=== PATIENT | male | born 1965 | race Asian ===

== ENCOUNTER 2021-10-30 10:45 | Inpatient (IN) | payer MEDICAID, OTHER ==
[~2021-10-30] VITALS: Ht 162.6 cm; Wt 98.2 kg
[2021-10-30 11:54] LABS: Basophils # (auto) 0.1 10 ^3/uL (0-0.2); Basophils % (auto) 0.7 % (0.0-2.0); Eosinophils # (auto) 0.2 10 ^3/uL (0-0.8); Eosinophils % (auto) 2.8 % (0.0-7.0); Hematocrit 43.9 % (41.0-53.0); Hemoglobin 14.7 g/dL (13.5-17.5); Lymphocytes % (auto) 34.4 % (10.0-50.0); Mean Corpuscular Hemoglobin 31.6 pg (28.0-32.0); Mean Corpuscular Hgb Conc. 33.5 g/dL (32.0-36.0); Mean Corpuscular Volume 94.3 fL (80.0-100.0); Monocytes # (auto) 0.6 10 ^3/uL (0-1.3); Monocytes % (auto) 6.9 % (0.0-12.0); Neutrophils # (auto) 4.8 10 ^3/uL (1.6-8.6); Neutrophils % (auto) 55.2 % (37.0-80.0); Nucleated Red Blood Cells % 0.2 %; Red Blood Cells 4.65 10^6/uL (4.5-5.90); Red Cell Distribution Width 14.2 % (11.8-14.3); White Blood Cell 8.7 10^3/uL (4.4-10.8)
[2021-10-30 12:04] LABS: BUN/Creatinine Ratio 23.5; Calcium 9.6 mg/dL (8.5-10.1); Potassium 3.8 mmol/L (3.5-5.1)
[2021-10-30 12:07] LABS: Bilirubin, Total 0.3 mg/dL (0.2-1.0)
[2021-10-30 12:41] LABS: INR > 8.0 (0.9-1.15); Partial Thromboplastin Time 91.4 sec (23.6-33.0)
[2021-10-30] MEDS ORDERED: cloNIDine HCL 0.1 MG TAB PO ONE (13:00)
[2021-10-30] MEDS ORDERED: MORPHINE SULFATE INJECTION 2 MG/ML SYRG IV PRN (14:30)
[2021-10-30] MEDS ORDERED: NITROGLYCERIN 0.4 MG SL TAB SL PRN (14:30)
[2021-10-30] MEDS ORDERED: PHYTONADIONE(VitK) ORAL Susp 5mg/5ml(1mg/ml) PO ONE (14:30)
[2021-10-30] MEDS ORDERED: ONDANSETRON HCL 4 MG/2 ML VIAL IV PRN (14:30)
[2021-10-30] MEDS ORDERED: phytonadione 0 ML ONE (14:35)
[2021-10-30] MEDS ORDERED: amLODIPine BESYLATE 5 MG TAB PO SCH (18:00)
[2021-10-30 18:34] VITALS: BP 130/88
[2021-10-30 22:00] VITALS: BP 108/74
[2021-10-30] MEDS: LISINOPRIL 5 MG TAB PO SCH (22:00)
[2021-10-30] MEDS: CARVEDILOL 3.125 MG TAB PO SCH (22:44)
[2021-10-30] MEDS: PANTOPRAZOLE 40 MG/10 ML VIAL INJ IV SCH (22:47)
[2021-10-31] VITALS (19 sets, daily range): BP systolic 75–141; BP diastolic 44–84
[2021-10-31 05:39] LABS: Hematocrit 38.2 % (41.0-53.0); Hemoglobin 13.1 g/dL (13.5-17.5)
[2021-10-31 06:47] LABS: INR > 8.0 (0.9-1.15)
[2021-10-31 06:48] LABS: Partial Thromboplastin Time 98.2 sec (23.6-33.0)
[2021-10-31] MEDS ORDERED: PHYTONADIONE (VIT K)10 MG/ML 1ML VIAL SUBCUT ONE (07:00)
[2021-10-31] MEDS: LISINOPRIL 5 MG TAB PO SCH (09:33)
[2021-10-31] MEDS: PANTOPRAZOLE 40 MG/10 ML VIAL INJ IV SCH ×2 (09:34→21:07)
[2021-10-31] MEDS: CARVEDILOL 3.125 MG TAB PO SCH (09:34)
[2021-10-31] MEDS ORDERED: PHYTONADIONE(VitK) ORAL Susp 5mg/5ml(1mg/ml) PO ONE (10:00)
[2021-10-31] MEDS: NICOTINE 21MG/24 HR TOPICAL PATCH TD SCH (13:10)
[2021-10-31] MEDS ORDERED: SODIUM CHLORIDE 0.9% 500 ML IV ONE ×2 (13:45→14:45)
[2021-10-31] MEDS: amLODIPine BESYLATE 5 MG TAB PO SCH ×2 (13:45→17:28)
[2021-10-31] MEDS ORDERED: CARVEDILOL 3.125 MG TAB PO SCH (13:45)
[2021-10-31 15:20] LABS: Hematocrit 32.2 % (41.0-53.0); Hemoglobin 10.8 g/dL (13.5-17.5)
[2021-10-31] MEDS ORDERED: phytonadione 10 MG in SODIUM CHL 0.9% 50 ML IV ONE (15:45)
[2021-10-31] MEDS ORDERED: ACETAMINOPHEN 500 MG TAB PO ONE (15:45)
[2021-10-31] MEDS ORDERED: ALBUMIN 25% 100 ML IV ONE ×2 (15:45)
[2021-10-31] MEDS ORDERED: diphenhdrAMINE HCL 25 MG CAP PO PRN (15:45)
[2021-10-31] MEDS ORDERED: diphenhdrAMINE HCL 25 MG CAP PO ONE (15:45)
[2021-10-31 16:46] LABS: Basophils # (auto) 0.1 10 ^3/uL (0-0.2); Basophils % (auto) 0.7 % (0.0-2.0); Eosinophils # (auto) 0.3 10 ^3/uL (0-0.8); Eosinophils % (auto) 3.5 % (0.0-7.0); Hematocrit 29.9 % (41.0-53.0); Hemoglobin 10.1 g/dL (13.5-17.5); Lymphocytes % (auto) 39.5 % (10.0-50.0); Mean Corpuscular Hemoglobin 31.6 pg (28.0-32.0); Mean Corpuscular Hgb Conc. 33.7 g/dL (32.0-36.0); Mean Corpuscular Volume 93.8 fL (80.0-100.0); Monocytes # (auto) 0.5 10 ^3/uL (0-1.3); Monocytes % (auto) 6.3 % (0.0-12.0); Neutrophils # (auto) 3.8 10 ^3/uL (1.6-8.6); Nucleated Red Blood Cells % 0.1 %; Red Blood Cells 3.18 10^6/uL (4.5-5.90); Red Cell Distribution Width 14.2 % (11.8-14.3); White Blood Cell 7.7 10^3/uL (4.4-10.8)
[2021-10-31 17:09] LABS: INR 7.96 (0.9-1.15)
[2021-10-31 17:12] LABS: % Iron Saturation 56.8 % (20-55)
[2021-10-31 18:57] LABS: Ferritin 54.6 ng/mL (10-322)
[2021-10-31 19:34] LABS: Partial Thromboplastin Time 72.4 sec (23.6-33.0)
[2021-10-31] MEDS ORDERED: ATORVASTATIN 20 MG TAB PO SCH (22:00)
[2021-11-01] VITALS (9 sets, daily range): BP systolic 110–160; BP diastolic 65–84
[2021-11-01 01:52] LABS: Hematocrit 36.6 % (41.0-53.0); Hemoglobin 12.6 g/dL (13.5-17.5)
[2021-11-01 06:13] LABS: Basophils # (auto) 0 10 ^3/uL (0-0.2); Basophils % (auto) 0.7 % (0.0-2.0); Eosinophils # (auto) 0.2 10 ^3/uL (0-0.8); Eosinophils % (auto) 3.5 % (0.0-7.0); Hemoglobin 12.6 g/dL (13.5-17.5); Lymphocytes # (auto) 2.3 10 ^3/uL (0.4-5.4); Lymphocytes % (auto) 34.8 % (10.0-50.0); Mean Corpuscular Hemoglobin 31.5 pg (28.0-32.0); Mean Corpuscular Hgb Conc. 34.8 g/dL (32.0-36.0); Mean Corpuscular Volume 90.4 fL (80.0-100.0); Monocytes # (auto) 0.5 10 ^3/uL (0-1.3); Monocytes % (auto) 7.4 % (0.0-12.0); Neutrophils # (auto) 3.6 10 ^3/uL (1.6-8.6); Neutrophils % (auto) 53.6 % (37.0-80.0); Red Blood Cells 3.99 10^6/uL (4.5-5.90); Red Cell Distribution Width 14.6 % (11.8-14.3); White Blood Cell 6.7 10^3/uL (4.4-10.8)
[2021-11-01 06:20] LABS: INR 1.16 (0.9-1.15); Partial Thromboplastin Time 29.2 sec (23.6-33.0); Potassium 3.8 mmol/L (3.5-5.1)
[2021-11-01 06:25] LABS: BUN/Creatinine Ratio 26.4; Calcium 8.4 mg/dL (8.5-10.1)
[2021-11-01] MEDS ORDERED: OMNIPAQUE ORAL SOLN 500ml 12mg/ml PO ONE (07:31)
[2021-11-01] MEDS: NICOTINE 21MG/24 HR TOPICAL PATCH TD SCH (10:20)
[2021-11-01] MEDS: PANTOPRAZOLE 40 MG/10 ML VIAL INJ IV SCH (10:20)
[2021-11-01] MEDS ORDERED: WARF3TAB22 PO ×2 (12:52→13:05)
[2021-11-01] MEDS ORDERED: AMLO-489 PO ×2 (12:52→13:05)
[2021-11-01] MEDS ORDERED: LISI20TA28 PO (12:56)
[2021-11-01] MEDS ORDERED: LISI-716 PO ×2 (12:56→13:05)
[2021-11-01] MEDS ORDERED: ATOR-47 PO ×2 (12:56→13:05)
[2021-11-01] MEDS ORDERED: PANT40T PO (13:05)
[2021-11-01] MEDS ORDERED: amLODIPine BESYLATE 5 MG TAB PO ONE (13:15)
[2021-11-01] MEDS ORDERED: ENOXAPARIN SOD 40 MG/0.4 ML SYRINGE SC SCH (22:00)
[2021-11-02 15:17] LABS: Folate (Folic Acid) 12.29 ng/mL (5.38-24)
== END 2021-11-01 16:15 | disposition home or self-care (01) | DRG 254 ==
LOC: ER 10:45 → TELE 14:16 → TELE-EAST 17:52
PROVIDERS: ADMIT Hospitalist; ATTEND Hospitalist
PROC: 30233K1 Transfusion of Nonautologous Frozen Plasma into Peripheral Vein, Percutaneous Approach (ICD-10-PCS; principal; 2021-10-31)
PROC: 30233N1 Transfusion of Nonautologous Red Blood Cells into Peripheral Vein, Percutaneous Approach (ICD-10-PCS; 2021-10-31)
DX: K92.1 Melena (principal); I63.449 Cerebral infarction due to embolism of unspecified cerebellar artery; D62 Acute posthemorrhagic anemia; E78.5 Hyperlipidemia, unspecified; T45.515A Adverse effect of anticoagulants, initial encounter; Z20.822 Contact with and (suspected) exposure to COVID-19; I11.9 Hypertensive heart disease without heart failure; Z82.49 Family history of ischemic heart disease and other diseases of the circulatory system; Z86.73 Personal history of transient ischemic attack (TIA), and cerebral infarction without residual deficits; Y92.89 Other specified places as the place of occurrence of the external cause; Z87.891 Personal history of nicotine dependence
CPT/HCPCS: 36415; 70450; 74176; 80048; 80053; 82607; 82728; 82746; 83540; 83550; 83615; 85014; 85018; 85025; 85045; 85384; 85610; 85730; 86850; 86900; 86901; 86920; 87426; 93005; 97163; C9113; G0378; J3430; P9047

== ENCOUNTER 2023-08-09 10:35 | Inpatient (IN) | payer MEDICAID ==
[~2023-08-09] VITALS: Ht 193 cm; Wt 61.1 kg
[~2023-08-09 10:35] MED LIST: AMLO1TAB22 PO; ATOR-47 PO; LISI10TA34 PO; PANT40T PO; WARF-111 PO
[2023-08-09 12:02] LABS: Basophils # (auto) 0.1 10 ^3/uL (0-0.2); Eosinophils # (auto) 0.3 10 ^3/uL (0-0.8); Hematocrit 24.4 % (41.0-53.0); Hemoglobin 7.2 g/dL (13.5-17.5); Mean Corpuscular Hemoglobin 19.5 pg (28.0-32.0); Monocytes # (auto) 0.6 10 ^3/uL (0-1.3); White Blood Cell 8.5 10^3/uL (4.4-10.8)
[2023-08-09 12:05] LABS: Basophils % (auto) 1.3 % (0.0-2.0); Lymphocytes % (auto) 23.1 % (10.0-50.0); Mean Corpuscular Hgb Conc. 29.4 g/dL (32.0-36.0); Mean Corpuscular Volume 66.3 fL (80.0-100.0); Monocytes % (auto) 7.2 % (0.0-12.0); Neutrophils # (auto) 5.6 10 ^3/uL (1.6-8.6); Neutrophils % (auto) 65.4 % (37.0-80.0); Red Blood Cells 3.68 10^6/uL (4.5-5.90)
[2023-08-09 12:09] LABS: Red Cell Distribution Width 20.5 % (11.8-14.3)
[2023-08-09 12:20] LABS: Alanine Aminotransferase 22 U/L (7-40); Albumin 4.8 g/dL (3.2-4.8); Alkaline Phosphatase 57 U/L (46-116); Anion Gap 9 (5-15); Aspartate Aminotransferase 27 U/L (13-40); BUN/Creatinine Ratio 13.2 (10.0-20.0); Bilirubin, Total 0.5 mg/dL (0.2-1.0); Blood Urea Nitrogen 12 mg/dL (9-23); Calcium 9.6 mg/dL (8.5-10.1); Carbon Dioxide 22 mmol/L (20-30); Chloride 105 mmol/L (98-107); Glucose 79 mg/dL (74-106); Potassium 4.4 mmol/L (3.5-5.1); Sodium 136 mmol/L (136-145)
[2023-08-09 12:21] LABS: Total Protein 7.6 g/dL (5.7-8.2)
[2023-08-09 12:24] LABS: INR 2.2 (0.9-1.15); Partial Thromboplastin Time 32.1 SEC (24.5-34.5); Prothrombin Time 21.9 sec (9.3-11.8)
[2023-08-09 12:25] LABS: Anisocytosis Slight; Hypochromia Marked; Platelet Estimate Adequate
[2023-08-09 12:26] LABS: Ovalocytes FEW; Stomatocytes Few
[2023-08-09 15:00] VITALS: BP 128/66; PULSE 102; RESP 20; TEMP 97; O2SAT 98
[2023-08-09] MEDS ORDERED: SODIUM CHLORIDE 0.9% 1,000 ML IV SCH (15:45)
[2023-08-09] MEDS ORDERED: MORPHINE SULFATE INJ 2 MG/ml SYRG IV PRN (15:45)
[2023-08-09] MEDS ORDERED: ONDANSETRON HCL 4 MG/2 ML VIAL IV PRN (15:45)
[2023-08-09] MEDS ORDERED: DOCUSATE SOD 100 MG CAP PO PRN (15:45)
[2023-08-09 16:07] LABS: Urine Bacteria NONE SEEN /hpf (None Seen); Urine Blood Negative /uL (Negative); Urine Clarity Clear (Clear); Urine Color Yellow (Yellow); Urine Hyaline Cast FEW /lpf (0 - 2); Urine Mucus FEW (None Seen); Urine Protein, UAD TRACE (Negative); Urine Specific Gravity 1.021 (1.001-1.035); Urine Urobilinogen Normal (Negative); Urine WBC 1 /hpf (0 - 3); Urine pH 5.5 (5.0-8.0)
[2023-08-09 16:32] LABS: Hematocrit 26.2 % (41.0-53.0); Hemoglobin 7.8 g/dL (13.5-17.5)
[2023-08-09 16:57] LABS: INR 2.12 (0.9-1.15); Prothrombin Time 21.2 sec (9.3-11.8)
[2023-08-09] MEDS ORDERED: LISINOPRIL 10 MG TAB PO SCH (18:00)
[2023-08-09] MEDS ORDERED: ATORVASTATIN 20 MG TAB PO SCH (22:00)
[2023-08-09] MEDS ORDERED: PANTOPRAZOLE 40 MG/10 ML VIAL INJ IV SCH (22:00)
[2023-08-10] MEDS ORDERED: amLODIPine BESYLATE 5 MG TAB PO SCH (10:00)
== END 2023-08-09 21:46 | disposition left against medical advice (07) | DRG 253 ==
LOC: ER 10:35 → OVERFLOW 15:42
PROVIDERS: ADMIT Nurse Practitioner Family; ATTEND Nurse Practitioner Family
DX: K92.2 Gastrointestinal hemorrhage, unspecified (principal); I11.9 Hypertensive heart disease without heart failure; E78.5 Hyperlipidemia, unspecified; D62 Acute posthemorrhagic anemia; Z53.21 Procedure and treatment not carried out due to patient leaving prior to being seen by health care provider; Z86.73 Personal history of transient ischemic attack (TIA), and cerebral infarction without residual deficits; Z87.891 Personal history of nicotine dependence
CPT/HCPCS: 36415; 80053; 81001; 85014; 85018; 85025; 85610; 85730; 86850; 86900; 86901; 86920; G0378

== ENCOUNTER 2023-09-14 10:20 | Inpatient (IN) | payer MEDICAID ==
[~2023-09-14] VITALS: Ht 162.6 cm; Wt 52.9 kg
[2023-09-14 11:03] LABS: Basophils # (auto) 0.1 10 ^3/uL (0-0.2); Eosinophils # (auto) 0.3 10 ^3/uL (0-0.8)
[2023-09-14 11:06] LABS: Basophils % (auto) 0.7 % (0.0-2.0); Eosinophils % (auto) 2.8 % (0.0-7.0); Hematocrit 23.6 % (41.0-53.0); Lymphocytes # (auto) 2.5 10 ^3/uL (0.4-5.4); Lymphocytes % (auto) 27.8 % (10.0-50.0); Mean Corpuscular Hemoglobin 17.9 pg (28.0-32.0); Mean Corpuscular Hgb Conc. 29.1 g/dL (32.0-36.0); Mean Corpuscular Volume 61.7 fL (80.0-100.0); Monocytes # (auto) 0.7 10 ^3/uL (0-1.3); Monocytes % (auto) 7.3 % (0.0-12.0); Neutrophils # (auto) 5.6 10 ^3/uL (1.6-8.6); Neutrophils % (auto) 61.4 % (37.0-80.0); Red Blood Cells 3.83 10^6/uL (4.5-5.90); White Blood Cell 9.1 10^3/uL (4.4-10.8)
[2023-09-14 11:17] LABS: Red Cell Distribution Width 20.1 % (11.8-14.3)
[2023-09-14 11:19] LABS: Hemoglobin 6.9 g/dL (13.5-17.5)
[2023-09-14 11:22] LABS: Chloride 106 mmol/L (98-107); Potassium 4.5 mmol/L (3.5-5.1); Sodium 138 mmol/L (136-145)
[2023-09-14 11:23] LABS: Anion Gap 7 (5-15); Carbon Dioxide 25 mmol/L (20-30)
[2023-09-14 11:24] LABS: Calcium 9.9 mg/dL (8.5-10.1)
[2023-09-14 11:28] LABS: Glucose 98 mg/dL (74-106)
[2023-09-14 11:29] LABS: BUN/Creatinine Ratio 15.5 (10.0-20.0); Blood Urea Nitrogen 16 mg/dL (9-23)
[2023-09-14] MEDS ORDERED: MORPHINE SULFATE INJ 2 MG/ml SYRG IV PRN (12:45)
[2023-09-14] MEDS ORDERED: DOCUSATE SOD 100 MG CAP PO PRN (12:45)
[2023-09-14] MEDS ORDERED: ONDANSETRON HCL 4 MG/2 ML VIAL IV PRN (12:45)
[2023-09-14 13:38] LABS: INR 2.37 (0.9-1.15); Prothrombin Time 23.5 sec (9.3-11.8)
[2023-09-14 14:00] LABS: Hematocrit 23.8 % (41.0-53.0)
[2023-09-14 14:25] LABS: Hemoglobin 6.9 g/dL (13.5-17.5)
[2023-09-14 14:32] LABS: Anisocytosis Slight; Hypochromia Marked; Platelet Estimate Increased
[2023-09-14 20:23] VITALS: PULSE 87; RESP 18; O2SAT 99
[2023-09-14] MEDS: SODIUM CHLORIDE 0.9% 1,000 ML IV SCH ×2 (20:35→21:37)
[2023-09-14] MEDS: LISINOPRIL 10 MG TAB PO SCH (20:36)
[2023-09-15] VITALS (11 sets, daily range): BP systolic 117–154; BP diastolic 62–76; PULSE 75–101; RESP 16–18; TEMP 97.2–98.2; O2SAT 94–99
[2023-09-15] MEDS: PANTOPRAZOLE 40 MG/10 ML VIAL INJ IV SCH ×3 (00:15→21:48)
[2023-09-15] MEDS: ATORVASTATIN 20 MG TAB PO SCH ×2 (00:15→21:48)
[2023-09-15] MEDS ORDERED: METF-372 PO (03:20)
[2023-09-15] MEDS ORDERED: ASPI81CH59 PO (03:20)
[2023-09-15] MEDS ORDERED: BUPR-346 PO (03:20)
[2023-09-15] MEDS: SODIUM CHLORIDE 0.9% 1,000 ML IV SCH ×2 (06:44→12:38)
[2023-09-15] MEDS ORDERED: GOLYTELY 4L KIT PO ONE (09:45)
[2023-09-15] MEDS ORDERED: amLODIPine BESYLATE 5 MG TAB PO SCH (10:00)
[2023-09-15 11:12] LABS: Basophils # (auto) 0.1 10 ^3/uL (0-0.2); Hemoglobin 7.9 g/dL (13.5-17.5); Lymphocytes # (auto) 1.5 10 ^3/uL (0.4-5.4); Monocytes # (auto) 0.5 10 ^3/uL (0-1.3); Neutrophils # (auto) 3.9 10 ^3/uL (1.6-8.6); Nucleated Red Blood Cells % 0.1 %; White Blood Cell 6.2 10^3/uL (4.4-10.8)
[2023-09-15 11:14] LABS: Basophils % (auto) 1.1 % (0.0-2.0); Eosinophils # (auto) 0.3 10 ^3/uL (0-0.8); Eosinophils % (auto) 4.7 % (0.0-7.0); Hematocrit 26.6 % (41.0-53.0); Lymphocytes % (auto) 24.6 % (10.0-50.0); Mean Corpuscular Hemoglobin 19.3 pg (28.0-32.0); Mean Corpuscular Hgb Conc. 29.8 g/dL (32.0-36.0); Mean Corpuscular Volume 64.9 fL (80.0-100.0); Monocytes % (auto) 7.4 % (0.0-12.0); Neutrophils % (auto) 62.2 % (37.0-80.0)
[2023-09-15 11:20] LABS: Alanine Aminotransferase 18 U/L (7-40); Albumin 4.4 g/dL (3.2-4.8); Alkaline Phosphatase 52 U/L (46-116); Anion Gap 8 (5-15); Aspartate Aminotransferase 27 U/L (13-40); BUN/Creatinine Ratio 10.4 (10.0-20.0); Bilirubin, Total 0.5 mg/dL (0.2-1.0); Blood Urea Nitrogen 11 mg/dL (9-23); Calcium 9.2 mg/dL (8.5-10.1); Carbon Dioxide 23 mmol/L (20-30); Chloride 107 mmol/L (98-107); Potassium 4.7 mmol/L (3.5-5.1); Sodium 138 mmol/L (136-145)
[2023-09-15 11:24] LABS: Glucose 241 mg/dL (74-106)
[2023-09-15 12:00] LABS: Red Cell Distribution Width 24.3 % (11.8-14.3)
[2023-09-15 15:32] LABS: Urine Bacteria NONE SEEN /hpf (None Seen); Urine Blood Negative /uL (Negative); Urine Clarity Clear (Clear); Urine Color Colorless (Yellow); Urine Protein, UAD Negative (Negative); Urine Specific Gravity 1.005 (1.001-1.035); Urine Urobilinogen Normal (Negative); Urine WBC <1 /hpf (0 - 3); Urine pH 7.5 (5.0-8.0)
[2023-09-15 16:42] LABS: INR 2.15 (0.9-1.15); Prothrombin Time 21.5 sec (9.3-11.8)
[2023-09-15] MEDS: LISINOPRIL 10 MG TAB PO SCH (17:42)
[2023-09-16] VITALS (7 sets, daily range): BP systolic 140–147; BP diastolic 53–88; PULSE 80–95; RESP 16–19; TEMP 97.6–98.4; O2SAT 92–97
[2023-09-16] MEDS: SODIUM CHLORIDE 0.9% 1,000 ML IV SCH ×2 (05:55→15:31)
[2023-09-16] MEDS ORDERED: GOLYTELY 4L KIT PO ONE (06:00)
[2023-09-16] MEDS ORDERED: MAGNESIUM CITRATE SOLUTION 300 ML BTL PO ONE (06:00)
[2023-09-16 07:23] LABS: Eosinophils # (auto) 0.3 10 ^3/uL (0-0.8); Mean Corpuscular Hemoglobin 19.3 pg (28.0-32.0); Monocytes # (auto) 0.6 10 ^3/uL (0-1.3); Nucleated Red Blood Cells % 0.2 %
[2023-09-16 07:25] LABS: Basophils # (auto) 0.1 10 ^3/uL (0-0.2); Hematocrit 29.8 % (41.0-53.0); Lymphocytes # (auto) 2.8 10 ^3/uL (0.4-5.4); Mean Corpuscular Hgb Conc. 30.1 g/dL (32.0-36.0); Mean Corpuscular Volume 64.1 fL (80.0-100.0); Monocytes % (auto) 8.2 % (0.0-12.0); Neutrophils # (auto) 3.6 10 ^3/uL (1.6-8.6); Neutrophils % (auto) 48.8 % (37.0-80.0); Red Blood Cells 4.65 10^6/uL (4.5-5.90); White Blood Cell 7.4 10^3/uL (4.4-10.8)
[2023-09-16 07:36] LABS: Red Cell Distribution Width 24.2 % (11.8-14.3)
[2023-09-16 07:40] LABS: Alanine Aminotransferase 23 U/L (7-40); Alkaline Phosphatase 60 U/L (46-116); Anion Gap 11 (5-15); Aspartate Aminotransferase 36 U/L (13-40); BUN/Creatinine Ratio 7.4 (10.0-20.0); Bilirubin, Total 0.7 mg/dL (0.2-1.0); Blood Urea Nitrogen 7 mg/dL (9-23); Calcium 9.7 mg/dL (8.5-10.1); Carbon Dioxide 22 mmol/L (20-30); Chloride 109 mmol/L (98-107); Glucose 97 mg/dL (74-106); Potassium 3.8 mmol/L (3.5-5.1); Sodium 142 mmol/L (136-145); Total Protein 7.9 g/dL (5.7-8.2)
[2023-09-16 07:41] LABS: % Iron Saturation 6.2 % (20-55)
[2023-09-16 07:52] LABS: INR 1.45 (0.9-1.15); Partial Thromboplastin Time 28.2 SEC (24.5-34.5); Prothrombin Time 14.9 sec (9.3-11.8)
[2023-09-16] MEDS ORDERED: LIDOCAINE 2%HCL (LOCAL ANESTH.) INJ 10ml MDV ONE (08:50)
[2023-09-16 09:14] LABS: Hypochromia Marked; Platelet Estimate Increased
[2023-09-16 09:15] LABS: Anisocytosis Slight
[2023-09-16] MEDS: PANTOPRAZOLE 40 MG/10 ML VIAL INJ IV SCH (09:51)
[2023-09-16] MEDS ORDERED: LIDOCAINE 1% INJ PF 5ML AMP ONE (10:06)
[2023-09-16] MEDS ORDERED: PROPOFOL 10 MG/ML 20 ML IV ONE ×2 (10:06→10:46)
[2023-09-16] MEDS: LISINOPRIL 10 MG TAB PO SCH (19:30)
[2023-09-16] MEDS: ATORVASTATIN 20 MG TAB PO SCH (21:42)
[2023-09-17] MEDS: SODIUM CHLORIDE 0.9% 1,000 ML IV SCH (02:29)
[2023-09-17 05:18] VITALS: BP 133/68; PULSE 72; RESP 19; TEMP 98.9; O2SAT 95
[2023-09-17 06:48] LABS: Basophils # (auto) 0.1 10 ^3/uL (0-0.2); Eosinophils # (auto) 0.3 10 ^3/uL (0-0.8); Hemoglobin 7.9 g/dL (13.5-17.5); Monocytes # (auto) 0.7 10 ^3/uL (0-1.3); Neutrophils # (auto) 5.4 10 ^3/uL (1.6-8.6)
[2023-09-17 06:50] LABS: Basophils % (auto) 1.1 % (0.0-2.0); Eosinophils % (auto) 3.7 % (0.0-7.0); Hematocrit 26.2 % (41.0-53.0); Lymphocytes % (auto) 23.3 % (10.0-50.0); Mean Corpuscular Hemoglobin 19.6 pg (28.0-32.0); Mean Corpuscular Hgb Conc. 30.1 g/dL (32.0-36.0); Mean Corpuscular Volume 65.1 fL (80.0-100.0); Monocytes % (auto) 8.7 % (0.0-12.0); Neutrophils % (auto) 63.2 % (37.0-80.0); Red Blood Cells 4.02 10^6/uL (4.5-5.90); White Blood Cell 8.5 10^3/uL (4.4-10.8)
[2023-09-17 06:55] LABS: Anion Gap 7 (5-15); Calcium 8.6 mg/dL (8.7-10.4); Carbon Dioxide 23 mmol/L (20-30); Chloride 111 mmol/L (98-107); Potassium 3.7 mmol/L (3.5-5.1); Sodium 141 mmol/L (136-145)
[2023-09-17 07:01] LABS: BUN/Creatinine Ratio 11.1 (10.0-20.0); Blood Urea Nitrogen 9 mg/dL (9-23); Glucose 89 mg/dL (74-106)
[2023-09-17 08:00] VITALS: BP 146/77; PULSE 79; RESP 16; TEMP 97.8; O2SAT 94
[2023-09-17 08:10] VITALS: PULSE 84
[2023-09-17 08:49] VITALS: BP 146/77; PULSE 79; RESP 16; TEMP 97.8; O2SAT 94
[2023-09-17] MEDS ORDERED: PANTOPRAZOLE 40 MG TAB PO SCH (10:00)
[2023-09-17 13:14] VITALS: BP 146/71; PULSE 75; RESP 16; TEMP 97.9; O2SAT 97
[2023-09-17 14:25] VITALS: BP 145/81; PULSE 75; RESP 16; TEMP 97.9; O2SAT 97
== END 2023-09-17 15:20 | disposition home or self-care (01) | DRG 241 ==
LOC: ER 10:20 → TELE-CENTR 13:01 → TELE 13:01 → TELE-CENTR 09-15 02:16
PROVIDERS: ADMIT Nurse Practitioner Family; ATTEND Internal Medicine
PROC: 30233N1 Transfusion of Nonautologous Red Blood Cells into Peripheral Vein, Percutaneous Approach (ICD-10-PCS; principal; 2023-09-15)
PROC: 0DB68ZX Excision of Stomach, Via Natural or Artificial Opening Endoscopic, Diagnostic (ICD-10-PCS; 2023-09-16)
PROC: 0DBN8ZZ Excision of Sigmoid Colon, Via Natural or Artificial Opening Endoscopic (ICD-10-PCS; 2023-09-16)
PROC: 0DB98ZX Excision of Duodenum, Via Natural or Artificial Opening Endoscopic, Diagnostic (ICD-10-PCS; 2023-09-16 10:37)
DX: K29.71 Gastritis, unspecified, with bleeding (principal); I11.9 Hypertensive heart disease without heart failure; D50.0 Iron deficiency anemia secondary to blood loss (chronic); E78.5 Hyperlipidemia, unspecified; F17.200 Nicotine dependence, unspecified, uncomplicated; E11.9 Type 2 diabetes mellitus without complications; K63.5 Polyp of colon; K64.8 Other hemorrhoids; Z71.6 Tobacco abuse counseling; Z86.73 Personal history of transient ischemic attack (TIA), and cerebral infarction without residual deficits
CPT/HCPCS: 36415; 74176; 80048; 80053; 81001; 82270; 82728; 82962; 83540; 83550; 85014; 85018; 85025; 85610; 85730; 86850; 86900; 86901; 86920; 99291; C9113; G0378; J2001; J2704